=== PATIENT | female | born 1995 | race Hispanic/Latino ===

== ENCOUNTER 2021-03-24 13:12 | Outpatient (CLI) | payer OTHER, SELFPAY | END 2021-03-24 13:13 | disposition home or self-care (01) | LOC: ANHAUDIO 13:15 | PROVIDERS: PCP Family Medicine; Visit Provider Family Medicine | DX: H93.12 Tinnitus, left ear (principal) | CPT/HCPCS: 92552; 92556; 92567 ==

== ENCOUNTER → 2021-05-07 09:15 | Outpatient (CLI) | payer OTHER, SELFPAY ==
--- NOTE | ~2021-05-07 | MR_ITS ---
EXAMINATION: MR brain IAC wo/w con DATE: 05/07/2021 10:28 INDICATION: Subjective pulsatile tinnitus of left ear. TECHNIQUE: Magnetic resonance imaging (MRI) of the brain, brainstem, and internal auditory canals was performed without and with 9 mL MultiHance intravenous contrast. Sequences included sagittal and axi al T1-weighted FSE, axial diffusion-weighted FS EPI, axial T2*-weighted GRE, axial T2-weighted FLAIR Propeller, axial T2-weighted Propeller, small gszir-od-kfxz coronal FIESTA, small flzgv-yk-bvuc coron al T1-weighted FSE, and small ugwes-sv-pzok axial T1-weighted SPGR. Postcontrast sequences included a xial T1-weighted FSE, small fcukj-bq-thmi coronal T1-weighted FSE, and small nlbmp-ck-xger axial T1-w eighted SPGR. Apparent diffusion coefficient (ADC) maps were created. COMPARISON: None. FINDINGS: There is no intracranial hemorrhage, acute infarction, or abnormal intracranial mass lesion . The ventricles are normal in size. The paranasal sinuses are clear. The orbits are normal. The mast oid air cells are normal. The internal auditory canals and inner and middle ears are normal. IMPRESSION: 1. Normal brain. Reviewed, dictated and finalized at location A. IMPRESSION: 1. Normal brain.
[2021-05-07 09:53] LABS: Estimated Glomerular Filt Rate > 60
== END ==
PROVIDERS: PCP Family Medicine; Visit Provider Nurse Practitioner Family
DX: H93.A2 Pulsatile tinnitus, left ear (principal)
CPT/HCPCS: 70553; A9577